=== PATIENT | male | born 1970 | race African-American/Black ===

== ENCOUNTER 2017-10-27 23:47 | Emergency (ER) | payer SELFPAY ==
[~2017-10-27] VITALS: Ht 175.3 cm; Wt 100.0 kg
[2017-10-27] MEDS ORDERED: SODIUM CHLORIDE 0.9% 1,000 ML IV SCH (23:58)
[2017-10-28] MEDS ORDERED: FAMOTIDINE 20MG/2ML VIAL IV ONE
[2017-10-28] MEDS ORDERED: METHYLPREDNISOLONE SOD SUCC 125 MG/2 ML VIAL IV ONE
[2017-10-28 00:23] LABS: BASOPHILS % 0.4 % (0.0-2.0); EOSINOPHILS % 3.3 % (0.0-5.0); HEMATOCRIT. 41.3 % (42.0-52.0); HEMOGLOBIN. 13.7 g/dL (14.0-18.0); LYMPHOCYTES % 46.7 % (20.0-50.0); MEAN CORPUSCULAR HEMOGLOBIN 31.3 pg (28.0-32.0); MEAN CORPUSCULAR VOLUME 94.7 fL (80.0-94.0); MEAN PLATELET VOLUME 8.6 fl (7.4-10.4); MONOCYTES % 12.8 % (2.0-8.0); NEUTROPHILS % 36.8 % (40.0-76.0); PLATELET 184 x1000/uL (130-400); RED BLOOD CELL COUNT 4.36 mill/uL (4.7-6.1); RED CELL DISTRIBUTION WIDTH 12.8 % (11.6-14.6)
[2017-10-28 00:29] LABS: CHLORIDE 103 mEq/L (98-107)
[2017-10-28 00:37] LABS: CARBON DIOXIDE 29 mEq/L (21-32)
[2017-10-28 03:37] VITALS: BP 123/90
== END 2017-10-28 03:50 | disposition home or self-care (01) ==
LOC: ER 23:47
DX: T78.1XXA Other adverse food reactions, not elsewhere classified, initial encounter (principal); Z91.013 Allergy to seafood; X58.XXXA Exposure to other specified factors, initial encounter
CPT/HCPCS: 36415; 80053; 85025; 96361; 96374; 96375; 99285; J2930; J3490; J7030